=== PATIENT | female | born 1980 | race African-American/Black ===

== ENCOUNTER 2020-11-19 18:59 | Inpatient (IN) | payer BC ==
[~2020-11-19] VITALS: Ht 165.1 cm; Wt 102.1 kg
[2020-11-19 19:08] VITALS: BP 162/110
[2020-11-19 20:08] LABS: ABSOLUTE NEUTROPHILS 4.7 thou/uL (1.4-8.2); BASOPHILS 0.9 % (0.0-2.0); EOSINOPHILS 1.2 % (0.0-3.0); HEMATOCRIT 35.1 % (37.0-47.0); HEMOGLOBIN 11.3 gm/dL (12.0-15.0); LYMPHOCYTES 30.1 % (24.0-44.0); MCH 25.1 pg (26.0-34.0); MCHC 32.3 g/dL (28.0-37.0); MCV 77.9 fL (80.0-100.0); MONOCYTES 3.8 % (1.0-8.0); PLATELET COUNT 412 thou/uL (150-400); RDW 16.3 % (10.5-14.5); WBC 7.4 thou/uL (4.0-11.0)
[2020-11-19 20:12] LABS: CALCIUM 8.5 mg/dL (8.5-10.1); CREATININE 0.9 mg/dL (0.6-1.0)
[2020-11-19 20:22] LABS: ALBUMIN 3.4 g/dL (3.4-5.0); TOTAL BILIRUBIN 0.2 mg/dL (0.2-1.0); TOTAL PROTEIN 7.3 g/dL (6.4-8.2)
[2020-11-19 22:49] VITALS: BP 145/85
[2020-11-19 23:00] VITALS: BP 152/87
[2020-11-20 03:56] VITALS: BP 130/75
--- NOTE | 2020-11-20 04:31 | NUR ---
ADMITTED THIS PATEINT FROM THE EMERGENCY A CASE ON NSTEMI.ON ROOM AIR BREATHING SPONTANEOUSLY.NOT IN PAIN OR DISTRESS.ADMISSION COMPLETED.ALL NEEDS ATTENDED.FOR CONTINOUS MONITORING.
[2020-11-20 04:52] LABS: CHOLESTEROL 158 mg/dL (<200); HDL CHOLESTEROL 38 mg/dL (>40); LDL CHOLESTEROL 105 mg/dL (<100); TC:HDL 4.2 Ratio (Not establshd); TRIGLYCERIDE 76 mg/dL (<150); VLDL 15 mg/dL (<40)
[2020-11-20 04:59] LABS: SERUM ASSESSMENT Clear
--- NOTE | 2020-11-20 07:30 | EKG ---
[address] [place] [address] ELECTROCARDIOGRAM REPORT Name: YARELI SALGADO Room #: 208-P ADM IN M.R.#: [id number] Admission: 11/19/20 Attend Phys: Peg Manjarrez MD Discharge: Date of : 78 Report #: [id number] [facility] ED Test Date: 2020-11-19 Test Time: 19:12:39 Pat Name: YARELI SALGADO Department: Room: 208 Gender: F Acupuncture Physician: JALEEL : 1980 Requested By: Ruperto Bolanos Order Number: [id number] MD: Terrence Castle Measurements Intervals [place] Rate: 100 P: 49 NM: 162 QRS: 39 QRSD: 94 T: -12 QT: 337 QTc: 435 Interpretive Statements Sinus tachycardia Probable left atrial enlargement Small Q's inferior leads No previous ECG available for comparison Electronically Signed On 11-20-2020 7:30:42 CDT by Terrence Castle [email or web address] <ELECTRONICALLY SIGNED> By: Terrence Castle MD, [facility] 11/20/20 0730 11 11 Terrence Castle MD, FACC /EPI
[2020-11-20 08:21] VITALS: BP 139/87
--- NOTE | 2020-11-20 11:36 | EXE ---
[facility] [place] [address] STRESS ECHOCARDIOGRAM Name: YARELI SALGADO Room #: 208-P [facility] IN M.R.#: [id number] Admission: 11/19/20 Attend Phys: Peg aMnjarrez MD Discharge: Date of : 78 Report #: [id number] THIS REPORT FOR: cc: FAM - No family physician/PCP FAM - No family physician/PCP Austin Benavides MD [facility] ~ APPROVED REPORT Study performed: 11/20/2020 07:26:46 Exam: Stress Echocardiogram Indication: Chest pain Patient Location: Echo lab Stress Nurse: Suzanne Burkett RN Room #: 2 Status: routine Ht: 5 ft 5 in HR: 76 bpm BP: 134/82 mmHg Rhythm: NSR Medical History Exercise History: Indeterminate Procedure The patient underwent an Exercise Stress Test using the Maxwell Protocol. Blood pressure, heart rate, and EKG were monitored. An Echocardiogram was performed by computer systems technician in four stages in quad fashion. At peak stress, four selected images were obtained and placed side by side with resting images for comparison. Stress Test Details Stress Test: Exercise stress testing was performed using a Maxwell protocol. HR Resting HR: 75 bpm Max Heart Rate (APMHR): 180 bpm Max HR Achieved: 164 bpm Target HR (85% APMHR): 153 bpm % of APMHR: 91 Recovery HR: 74 bpm HR response to stress: Normal HR response to stress BP Resting BP: 134/82 mmHg Max BP: 164/106 mmHg [facility] [address] [place] [address] STRESS ECHOCARDIOGRAM Name: AYRELI SALGADO Room #: 208-P [facility] IN ..#: [id number] Admission: 11/19/20 Attend Phys: Peg Manjarrez MD Discharge: Date of : 78 Report #: [id number] Recovery BP: 154/88 mmHg BP response to stress: Normal blood pressure response to stress. ECG Clinical Reason for Termination: Maximal effort Stress Symptoms: Chest pain Exercise duration: 4 min sec Highest Stage Achieved: Stage 2: 2.5 mph at 12% grade. Exercise capacity: 6.2 METs Overall Exercise Capacity for Age: Poor Pre-Stress Echo The resting Echocardiogram showed normal left ventricular contractility with an estimated Ejection Fraction of about >55%. The resting echocardiogram demonstrated normal wall motion in all wall segments. Post-Stress Echo The stress Echocardiogram showed normal left ventricular contractility with an estimated Ejection Fraction of about 60-65%. Compared to rest, there were no stress-induced wall motion abnormalities. Clinical Color flow doppler was normal Conclusion Clinical Response: Non-ischemic Exercise Capacity: Average Stress ECG Response: Non-ischemic Stress Echo Images: Non-ischemic No prior study available for comparison. Other Information Study Quality: Good <ELECTRONICALLY SIGNED> By: Austin Benavides MD, [facility] 11/20/20 1136 1136 1136 Austin Benavides MD, FACC /INF
[2020-11-20 12:55] VITALS: BP 139/87
--- NOTE | 2020-11-20 14:06 | NUR ---
ASSUMED CARE SHIFT CHANGE. VSS DENIES PAIN. STRESS ECHO NEG THIS SHIFT. CLEARED FOR DC. DISCUSSED DISHCARGE WITH PT, COMMUNICATES UNDERSTANDING. IV REMOVED TELE REMOVED. PT LEFT UNIT WTIH ALL BELONGINGS.
[2020-11-21 01:06] LABS: GLYCOHEMOGLOBIN (HGB A1C) 5.9 % (4.8-5.6)
== END 2020-11-20 13:32 | disposition home or self-care (01) | DRG 280 ==
LOC: ER 18:59 → 2N 21:39 → EROBS 21:39 → ER 22:51 → 2N 22:51
PROVIDERS: Emergency Medicine; Nurse Practitioner Family; ADMIT Internal Medicine; ATTEND Internal Medicine
DX: I21.4 Non-ST elevation (NSTEMI) myocardial infarction (principal); R65.11 Systemic inflammatory response syndrome (SIRS) of non-infectious origin with acute organ dysfunction; E87.6 Hypokalemia; F17.210 Nicotine dependence, cigarettes, uncomplicated; I10 Essential (primary) hypertension; E66.9 Obesity, unspecified; Z98.891 History of uterine scar from previous surgery; Z68.37 Body mass index [BMI] 37.0-37.9, adult
CPT/HCPCS: 10081